=== PATIENT | female | born 1985 | race Two or more races ===

== ENCOUNTER 2017-06-12 18:21 | Emergency (ER) | payer OTHER ==
[2017-06-12 19:08] LABS: URINE HCG POC HCG NEGATIVE (Negative)
[2017-06-12 19:24] LABS: ADD MAN DIFF? NO
[2017-06-12 19:26] LABS: BASO % 1 % (0-3); EOS # 0.8 x10^3/uL (0.0-0.7); EOS % 11 % (0-3); HEMATOCRIT 38.1 % (36.0-47.0); HEMOGLOBIN 13.1 g/dL (12.0-15.5); LYMPH # 2.2 x10^3/uL (1.0-4.8); LYMPH % 32 % (24-48); MEAN CORPUSCULAR HEMOGLOBIN 31 pg (25-35); MEAN CORPUSCULAR HGB CONC 35 g/dL (31-37); MEAN CORPUSCULAR VOLUME 88 fL (79-100); MONO # 0.4 x10^3/uL (0.0-1.1); MONO % 5 % (0-9); NEUT # 3.7 x10^3uL (1.8-7.7); NEUT % 52 % (31-73); PLATELET COUNT 278 x10^3/uL (140-400); RED BLOOD COUNT 4.31 x10^6/uL (3.50-5.40); RED CELL DISTRIBUTION WIDTH 13.3 % (11.5-14.5); WHITE BLOOD COUNT 7.1 x10^3/uL (4.0-11.0)
[2017-06-12] MEDS: ONDANSETRON PF 4 MG/2 ML VIAL. IV ×2 (19:28)
[2017-06-12] MEDS: LIDO:MAALOX:DONNATAL 1:1:1 15 ML SINGLE DOSE SWSW ×2 (19:28)
[2017-06-12 19:41] LABS: ANION GAP 8 (6-14); BLOOD UREA NITROGEN 13 mg/dL (7-20); BUN/CREATININE RATIO 14 (6-20); CALCIUM 9.2 mg/dL (8.5-10.1); CARBON DIOXIDE 29 mmol/L (21-32); CHLORIDE 103 mmol/L (98-107); CREATININE 0.9 mg/dL (0.6-1.0); GLUCOSE 126 mg/dL (70-99); POTASSIUM 3.1 mmol/L (3.5-5.1); SODIUM 140 mmol/L (136-145)
[2017-06-12 19:43] LABS: ALBUMIN 3.2 g/dL (3.4-5.0); ALBUMIN/GLOBULIN RATIO 0.7 (1.0-1.7); ALK PHOS 57 U/L (46-116); ALT (SGPT) 19 U/L (14-59); AST (SGOT) 13 U/L (15-37); LIPASE 167 U/L (73-393); TOTAL BILIRUBIN 0.3 mg/dL (0.2-1.0); TOTAL PROTEIN 7.6 g/dL (6.4-8.2)
== END 2017-06-12 20:55 | disposition home or self-care (01) ==
LOC: ER 18:21
DX: K80.20 Calculus of gallbladder without cholecystitis without obstruction (principal)
CPT/HCPCS: 36415; 76700; 80053; 81025; 83690; 85025; 96374; 99285-25; J2405

== ENCOUNTER 2017-11-16 06:26 | Day surgery (SDC) | payer OTHER ==
[~2017-11-16 06:26] MED LIST: GLUCAGON,HUMAN RECOMBINANT 1 MG/ML VIAL.; SURGICEL HEMOSTAT 4X8 EACH.
[2017-11-16 06:53] LABS: NEG OBC UR NEG; POS OBC UR POS; U PREG PATIENT NEGATIVE (NEG)
[2017-11-16] MEDS ORDERED: ONDANSETRON PF 4 MG/2 ML VIAL. IV (07:00)
[2017-11-16] MEDS ORDERED: LIDOCAINE 1% PF 2 ML VIAL. ID (07:00)
[2017-11-16] MEDS ORDERED: MORPHINE SULFATE 2 MG/ML DISP.SYRIN. IV (07:00)
[2017-11-16] MEDS ORDERED: fentaNYL PF VIAL 100 MCG/2 ML VIAL IV (07:00)
[2017-11-16] MEDS ORDERED: PROCHLORPERAZINE 10 MG/2 ML VIAL. IV (07:00)
[2017-11-16] MEDS: IV RINGERS,LACTATED 1000ML 1,000 ML IV (07:17)
[2017-11-16 07:18] LABS: ADD MAN DIFF? NO
[2017-11-16 07:20] LABS: BASO # 0.1 x10^3/uL (0.0-0.2); BASO % 1 % (0-3); EOS # 0.8 x10^3/uL (0.0-0.7); EOS % 10 % (0-3); HEMATOCRIT 39.1 % (36.0-47.0); HEMOGLOBIN 13.7 g/dL (12.0-15.5); LYMPH # 2.9 x10^3/uL (1.0-4.8); LYMPH % 37 % (24-48); MEAN CORPUSCULAR HEMOGLOBIN 31 pg (25-35); MEAN CORPUSCULAR HGB CONC 35 g/dL (31-37); MEAN CORPUSCULAR VOLUME 88 fL (79-100); MONO # 0.4 x10^3/uL (0.0-1.1); MONO % 6 % (0-9); NEUT # 3.6 x10^3uL (1.8-7.7); NEUT % 47 % (31-73); PLATELET COUNT 264 x10^3/uL (140-400); RED BLOOD COUNT 4.45 x10^6/uL (3.50-5.40); WHITE BLOOD COUNT 7.7 x10^3/uL (4.0-11.0)
[2017-11-16 07:30] LABS: ANION GAP 9 (6-14); BLOOD UREA NITROGEN 16 mg/dL (7-20); CALCIUM 8.5 mg/dL (8.5-10.1); CARBON DIOXIDE 25 mmol/L (21-32); CHLORIDE 104 mmol/L (98-107); CREATININE 0.8 mg/dL (0.6-1.0); GFR 83.1; GLUCOSE 83 mg/dL (70-99); POTASSIUM 3.5 mmol/L (3.5-5.1); SODIUM 138 mmol/L (136-145)
[2017-11-16 07:35] LABS: ALBUMIN 3.3 g/dL (3.4-5.0); TOTAL BILIRUBIN 0.5 mg/dL (0.2-1.0)
[2017-11-16] MEDS ORDERED: fentaNYL PF VIAL 100 MCG/2 ML VIAL ×2 (07:43→08:50)
[2017-11-16] MEDS ORDERED: ROCURONIUM 50 MG/5 ML VIAL. (07:43)
[2017-11-16] MEDS ORDERED: DEXAMETHASONE SOD PHOS 20 MG/5 ML VIAL. (08:00)
[2017-11-16] MEDS ORDERED: ONDANSETRON PF 4 MG/2 ML VIAL. (08:00)
[2017-11-16] MEDS ORDERED: DESFLURANE 61 TO 120 MINUTES IH (08:00)
[2017-11-16] MEDS ORDERED: KETOROLAC 30 MG/ML INJ FOR OR. INJ (08:01)
[2017-11-16] MEDS ORDERED: PROPOFOL 20 ML IV (08:01)
[2017-11-16] MEDS ORDERED: LIDOCAINE 2% PF Vial for OR 5 ML VIAL. (08:01)
[2017-11-16] MEDS ORDERED: ESMOLOL 100 MG/10 ML VIAL. IV (08:05)
[2017-11-16] MEDS: IOHEXOL 300 MG/ML 100ML VIAL. (08:06)
[2017-11-16] MEDS: BUPIVACAINE-EPI 0.5%-1:200000 50 ML VIAL. (08:06)
[2017-11-16] MEDS ORDERED: NEOSTIGMINE METHYLSULFATE 5 MG/5 ML SYRINGE. (08:18)
[2017-11-16] MEDS ORDERED: GLYCOPYRROLATE 1 MG/5 ML VIAL. (08:18)
[2017-11-16] MEDS ORDERED: PHENYLEPHRINE in 0.9% NACL PF 1 MG/10 ML SYRINGE. IV (08:22)
[2017-11-16] MEDS ORDERED: ceFAZolin 2GM PREMIX 2 GM/50 ML BAG IV (09:00)
[2017-11-16] MEDS: fentaNYL PF VIAL 100 MCG/2 ML VIAL IV ×2 (09:07→09:24)
[2017-11-16] MEDS: oxyCODONE/APAP 5/325 1 TAB TABLET PO (10:14)
== END 2017-11-16 10:53 | disposition home or self-care (01) ==
LOC: SURG 06:26
DX: K80.20 Calculus of gallbladder without cholecystitis without obstruction (principal); F41.9 Anxiety disorder, unspecified; E66.9 Obesity, unspecified; Z68.23 Body mass index [BMI] 23.0-23.9, adult; Z87.440 Personal history of urinary (tract) infections; Z72.89 Other problems related to lifestyle; Z79.899 Other long term (current) drug therapy; Z83.3 Family history of diabetes mellitus
CPT/HCPCS: 36415; 74300; 80048; 81025; 82040; 82247; 85025; 88304; A7015; J0690; J1100; J1610; J1885; J2001; J2370; J2405; J2704; J2710; J3010; J3490; J7030; J7120; Q9967